=== PATIENT | female | born 1995 | race African-American/Black ===

== ENCOUNTER 2019-11-10 19:56 | Emergency (ER) | payer MEDICAID ==
[~2019-11-10] VITALS: Ht 165.1 cm; Wt 77.0 kg
[~2019-11-10 19:56] MED LIST: PREN1TAB78 MT
[2019-11-10 20:00] VITALS: BP 123/85
== END 2019-11-10 21:40 | disposition home or self-care (01) ==
LOC: ER 19:56
DX: B00.1 Herpesviral vesicular dermatitis (principal)
CPT/HCPCS: 99282